=== PATIENT | female | born 1965 | race Caucasian/White ===

== ENCOUNTER 2020-06-28 09:21 | Emergency (ER) | payer BC ==
[2020-06-28] MEDS ORDERED: Lactated Ringers 1,000 ML IV ONE (09:23)
[2020-06-28] MEDS ORDERED: Ketorolac 30 MG/ML SDV IVPUSH ONE (09:23)
[2020-06-28] MEDS ORDERED: Sodium Chloride 0.9% 10 ML Syringe FLUSH PRN (09:23)
--- NOTE | 2020-06-28 09:33 | EDM.PDOC ---
ED HPI GENERAL MEDICAL PROBLEM - General Chief Complaint: Trauma Stated Complaint: HORSE INJURY Time Seen by Provider: 06/28/20 09:25 Source of Information: Reports: Patient, RN. Denies: Old Records History Limitations: Reports: Other (no old records) - History of Present Illness INITIAL COMMENTS - FREE TEXT/NARRATIVE: 55 yo female was riding a horse at a gallop and the horse got spooked and she ended up on the ground. The horse did step on her once. She is UTD on tetanus. Arrives via private vehicle. She was wearing a helmet and denies neck pain. No LOC. Has chest wall pain with breathing and L humerus pain. No tx prior to arrival. Onset: Today, Sudden Onset Date: 06/28/20 Duration: Minutes: Location: Reports: Chest, Upper Extremity, Left Quality: Reports: Ache (L arm and chest) Severity: Moderate Improves with: Reports: Rest Worsens with: Reports: Movement (of L arm and deep breathing) Context: Reports: Trauma Associated Symptoms: Reports: No Other Symptoms Treatments [employer]: Reports: Other (see below) (none) - Related Data Allergies Allergy/AdvReac Type Severity Reaction Status Date / Time No Known Allergies Allergy Verified 06/28/20 09:54 Home Meds: Home Meds Hydrocodone/Acetaminophen [Hydrocodon-Acetaminophen 5-325] 1 - 2 each PO QID PRN #10 tablet 06/28/20 [Rx] Review of Systems - Review of Systems Review Of Systems: See Below Constitutional: Reports: No Symptoms Eyes: Reports: No Symptoms Ears: Reports: No Symptoms Nose: Reports: No Symptoms Mouth/Throat: Reports: Other (tenderness under her chin from an abrasion) Respiratory: Reports: Pleuritic Chest Pain. Denies: Shortness of Breath, Hemoptysis Cardiovascular: Reports: No Symptoms GI/Abdominal: Reports: No Symptoms Genitourinary: Reports: No Symptoms Musculoskeletal: Reports: Other (chest wall pain) Skin: Reports: Wound (extensive abrasions to chest, back, chin, medial side of L arm) Neurological: Reports: No Symptoms Psychiatric: Reports: No Symptoms ED EXAM, GENERAL - Physical Exam Exam: See Below Exam Limited By: No Limitations General Appearance: Alert, WD/WN, No Apparent Distress Eye Exam: Bilateral Eye: Normal Inspection Ears: Normal External Exam, Normal Canal, Hearing Grossly Normal, Normal TMs Ear Exam: Bilateral Ear: Auricle Normal, Canal Normal, TM normal Nose: Normal Inspection, No Blood Throat/Mouth: Normal Inspection, Normal Lips, Normal Teeth, Normal Oropharynx, Normal Voice, No Airway Compromise Head: Atraumatic, Normocephalic Neck: Normal Inspection, Supple, Non-Tender, Full Range of Motion Respiratory/Chest: No Respiratory Distress, Lungs Clear, Normal Breath Sounds, No Accessory Muscle Use. No: Chest Non-Tender (chest wall is tender) Cardiovascular: Regular Rate, Rhythm, No Edema Extremities: Normal Inspection. No: Normal Range of Motion (unable to fully flex at L arm/elbow), Non-Tender (tender L humerus), Pedal Edema Neurological: Alert, Oriented, CN II-XII Intact, Normal Cognition, No Motor/Sensory Deficits Psychiatric: Normal Affect, Normal Mood Skin Exam: Warm, Dry, Normal Color, No Rash, Wound/Incision (extensive abrasions of chest, back, medial L humeral area, and under chin. ). No: Intact Course - Orders/Labs/Meds Orders: Active Orders 24 hr Category Date Time Status Orthostatic Vital Signs [RC] ASDIRECTED Care 06/28/20 10:09 Active Chest 2V [CR] Stat Exams 06/28/20 09:22 Taken Humerus Lt [CR] Stat Exams 06/28/20 09:27 Taken Lactated Ringers [Ringers, Lactated] 1,000 ml Med 06/28/20 09:23 Active IV BOLUS Sodium Chloride 0.9% [Saline Flush] Med 06/28/20 09:23 Active 10 ml FLUSH ASDIRECTED PRN Saline Lock Insert [OM.PC] Routine Oth 06/28/20 09:23 Ordered Medication Orders Lactated Ringer's (Ringers, Lactated) 1,000 mls @ 500 mls/hr IV BOLUS ONE Stop: 06/28/20 11:22 Last Admin: 06/28/20 09:43 Dose: 500 mls/hr Documented by: LOREE Sodium Chloride (Sodium Chloride 0.9% 10 Ml Syringe) 10 ml FLUSH ASDIRECTED PRN PRN Reason: Keep Vein Open Last Admin: 06/28/20 09:47 Dose: 10 ml Documented by: LOREE Meds: Medications Generic Name Dose Route Start Last Admin Trade Name Freq PRN Reason Stop Dose Admin Lactated Ringer's 1,000 mls @ 500 mls/hr 06/28/20 09:23 06/28/20 09:43 Ringers, Lactated IV 06/28/20 11:22 500 mls/hr BOLUS ONE Administration Sodium Chloride 10 ml 06/28/20 09:23 06/28/20 09:47 Sodium Chloride 0.9% 10 Ml Syringe FLUSH 10 ml ASDIRECTED PRN Administration Keep Vein Open Discontinued Medications Generic Name Dose Route Start Last Admin Trade Name Liliane PRN Reason Stop Dose Admin Ketorolac Tromethamine 30 mg 06/28/20 09:23 06/28/20 09:39 Ketorolac 30 Mg/Ml Sdv IVPUSH 06/28/20 09:24 30 mg ONETIME ONE Administration Oxycodone/Acetaminophen 1 tab 06/28/20 10:04 06/28/20 10:11 Acetaminophen/Oxycodone 325-5 Mg Tab PO 06/28/20 10:05 1 tab ONETIME STA Administration - Radiology Interpretation Free Text/Narrative:: CXR-neg L humerus X-rays-neg - Re-Assessments/Exams Free Text/Narrative Re-Assessment/Exam: 06/28/20 09:50 Later tells me her L arm does not hurt, but moving it makes her chest hurt. Free Text/Narrative Re-Assessment/Exam: 06/28/20 10:29 Orthostatic vitals normal Departure - Departure Time of Disposition: 10:30 Disposition: Home, Self-Care 01 Condition: Fair Clinical Impression: Chest wall pain, Abrasions of multiple sites - Discharge Information *PRESCRIPTION DRUG MONITORING PROGRAM REVIEWED*: No *COPY OF PRESCRIPTION DRUG MONITORING REPORT IN PATIENT BRANDON: No Prescriptions: Hydrocodone/Acetaminophen [Hydrocodon-Acetaminophen 5-325] 1 - 2 each PO QID PRN #10 tablet PRN Reason: Pain Instructions: Chest Wall Pain, [id number] Referrals: PCP,None [Primary Care Provider] - Forms: ED Department Discharge Additional Instructions: Keep your abrasions clean with soap and water. Report any signs of infection. Take ibuprofen as needed for added pain relief, next dose after 3 pm today. May use acetaminophen OR [place] for added relief as needed. Follow up with your doctor in a few days, take your X-rays along to that appt. - My Orders Last 24 Hours: My Active Orders 06/28/20 09:22 Chest 2V [CR] Stat 06/28/20 09:23 Lactated Ringers [Ringers, Lactated] 1,000 ml IV BOLUS Sodium Chloride 0.9% [Saline Flush] 10 ml FLUSH ASDIRECTED PRN Saline Lock Insert [OM.PC] Routine 06/28/20 09:27 Humerus Lt [CR] Stat 06/28/20 10:09 Orthostatic Vital Signs [RC] ASDIRECTED - Assessment/Plan Last 24 Hours: My Active Orders 06/28/20 09:22 Chest 2V [CR] Stat 06/28/20 09:23 Lactated Ringers [Ringers, Lactated] 1,000 ml IV BOLUS Sodium Chloride 0.9% [Saline Flush] 10 ml FLUSH ASDIRECTED PRN Saline Lock Insert [OM.PC] Routine 06/28/20 09:27 Humerus Lt [CR] Stat 06/28/20 10:09 Orthostatic Vital Signs [RC] ASDIRECTED
[2020-06-28] MEDS ORDERED: Acetaminophen/oxyCODONE 325-5 MG Tab PO STA (10:04)
--- NOTE | 2020-06-30 14:35 | CR ---
CHEST: 2 view CLINICAL HISTORY:Trauma COMPARISON:None FINDINGS: There is some patchy density in the left lung base and lingula. This may represent some patchy atelectasis. Infiltrate is felt less likely. There is some minimal deformity in the left lateral mid ribs without definite fracture line seen. There are no effusions. There is no pneumothorax. Impression: Patchy airspace disease left lower lung may represent some atelectasis Minimal deformity of the left lateral chest wall. Fracture is not excluded. If clinically relevant a dedicated rib study recommended
--- NOTE | 2020-06-30 14:37 | CR ---
Humerus Lt CLINICAL HISTORY: Fall FINDINGS: There is no acute fracture within the humerus. There is a mildly displaced fracture of the left fourth rib posterior laterally. There is some lower pleural thickening. IMPRESSION: Displaced fracture of the left fourth rib Negative left humerus.
== END 2020-06-28 11:07 | disposition home or self-care (01) ==
LOC: JP.ED 09:21
DX: S20.312A Abrasion of left front wall of thorax, initial encounter (principal); S40.812A Abrasion of left upper arm, initial encounter; S00.81XA Abrasion of other part of head, initial encounter; V80.010A Animal-rider injured by fall from or being thrown from horse in noncollision accident, initial encounter
CPT/HCPCS: 71046; 73060; 96374; 99283; A9270; J1885; J7120